=== PATIENT | male | born 1955 | race Caucasian/White ===

== ENCOUNTER 2025-04-28 10:12 | Emergency (ER) | payer OTHER ==
--- NOTE | 2025-04-28 11:37 | RAD REPORT ---
EXAM: XR Knee Right 3 View HISTORY: [facility] MAIN PAIN Bed: COMPARISON: None TECHNIQUE: 3 views of the right knee were obtained. FINDINGS: Moderate knee effusion is seen. There is no evidence of acute fracture or dislocation. Mil d degenerative changes are seen. Enthesopathy at the quadriceps tendon attachment. IMPRESSION: No evidence of acute osseous abnormality. Moderate joint effusion.
--- NOTE | 2025-04-28 13:09 | ER ---
Nurse's Notes [facility] Name: Rigo Diallo Age: 69 yrs Sex: Male : 1955 Arrival Date: 04/28/2025 Time: 10:12 Bed Treatment Private MD: Diagnosis: Effusion, right knee;Pain in right knee Presentation: 04/28 10:50 Chief complaint: Patient states: Mechanical fall onto right knee yesterday. Coronavirus jl7 screen: At this time, the client does not indicate any symptoms associated with coronavirus-19. Ebola Screen: No symptoms or risks identified at this time. 10:50 Method Of Arrival: Wheelchair jl7 10:50 Initial Sepsis Screen: Does the patient meet any 2 criteria? No. Patient's initial jl7 sepsis screen is negative. Does the patient have a suspected source of infection? No. Patient's initial sepsis screen is negative. Risk Assessment: Do you want to hurt yourself or someone else? Patient reports no desire to harm self or others. Onset of symptoms was April 27, 2025. 10:50 Acuity: GEO 4 jl7 Triage Assessment: 12:06 General: Appears in no apparent distress. uncomfortable, Behavior is calm, cooperative, jl7 appropriate for age. Pain: Complains of pain in right knee Pain currently is 5 out of 10 on a pain scale. Musculoskeletal: Swelling present in right knee. Injury Description: right knee pain. Historical: - Allergies: 12:06 Cipro PO; jl7 - Home Meds: 12:06 Procardia Oral [Active]; Lisinopril Oral [Active]; jl7 - PMHx: 12:06 Hypertensive disorder; Hypercholesterolemia; jl7 - Immunization history:: Adult Immunizations unknown. - Infectious Disease History:: Denies. - Social history:: Smoking status: Patient denies any tobacco usage or history of. Patient uses alcohol, on a daily basis. patient/guardian reports chronic longstanding heavy alcohol consumption. 12 beers/day. Vital Signs: 10:50 BP 116 / 64; Pulse 77; Resp 17; Temp 97.6; Pulse Ox 98% ; Weight 122.47 kg; Height 6 jl7 ft. 2 in. ; Pain 5/10; 10:50 Body Mass Index 34.67 (122.47 kg, 187.96 cm) jl7 10:50 Pain Scale: Adult jl7 ED Course: 10:32 Patient arrived in ED. cj3 10:35 Charly Acosta, RN is Primary Nurse. ll1 10:35 Dean Tay FNP-C is PHCP. ll1 11:16 Knee Right 3 View XRAY In Process Unspecified. EDMS 12:05 Triage completed. jl7 12:06 Arm band placed on right wrist. jl7 13:09 Allen Reddy MD is Referral Physician. dr5 13:09 Rafael Schulte MD is Referral Physician. dr5 13:10 Nav Green is Attending Physician. dr5 13:37 No provider procedures requiring assistance completed. Patient did not have IV access jl7 during this emergency room visit. Administered Medications: No medications were administered Outcome: 13:09 Discharge ordered by MD. dr5 13:37 Discharged to home via wheelchair, with crutches, jl7 13:37 Condition: stable 13:37 Discharge instructions given to patient, family, Instructed on discharge instructions, follow up and referral plans. medication usage, Demonstrated understanding of instructions, follow-up care, medications, Prescriptions given X 2, 13:38 Patient left the ED. jl7 Signatures: Dispatcher [employer] EDID Berta Montana RN RN jl7 Charly Acosta, RN RN ll1 Dean Tay FNP-C [employer]ACHINE-[facility]5 Jeniffer Nassar cj3
[2025-04-28 14:02] VITALS: BP 116/64; TEMP 97.6; O2SAT 98
--- NOTE | 2025-04-29 13:39 | EDPHYS ---
Physician Documentation [facility] Name: Rigo Diallo Age: 69 yrs Sex: Male : 1955 Arrival Date: 04/28/2025 Time: 10:12 Bed Treatment Private MD: ED Physician Nav Green HPI: 04/28 16:36 This 69 yrs old Male presents to ER via Wheelchair with complaints of Knee dr5 Injury - RT. 16:36 Onset: The symptoms/episode began/occurred acutely. Patient is a 69-year-old male with dr5 history of hypertension and hyperlipidemia coming in with fall yesterday on right knee. Patient reports he was work on his boat and actually missed a step and fell in his right knee. Patient reports swelling and tenderness to the right knee. Patient is amatory with steady gait.. Historical: - Allergies: 12:06 Cipro PO; jl7 - Home Meds: 12:06 Procardia Oral [Active]; Lisinopril Oral [Active]; jl7 - PMHx: 12:06 Hypertensive disorder; Hypercholesterolemia; jl7 - Immunization history:: Adult Immunizations unknown. - Infectious Disease History:: Denies. - Social history:: Smoking status: Patient denies any tobacco usage or history of. Patient uses alcohol, on a daily basis. patient/guardian reports chronic longstanding heavy alcohol consumption. 12 beers/day. ROS: 16:36 Constitutional: as per hpi dr5 Exam: 16:36 Constitutional: This is a well developed, well nourished patient who is awake, alert, dr5 and in no acute distress. Head/Face: Normocephalic, atraumatic. Eyes: Pupils equal round and reactive to light, extra-ocular motions intact. Lids and lashes normal. Conjunctiva and sclera are non-icteric and not injected. Cornea within normal limits. Periorbital areas with no swelling, redness, or edema. Neck: Trachea midline, no thyromegaly or masses palpated, and no cervical lymphadenopathy. Supple, full range of motion without nuchal rigidity, or vertebral point tenderness. No Meningismus. Chest/axilla: Normal chest wall appearance and motion. Nontender with no deformity. No lesions are appreciated. Cardiovascular: Regular rate and rhythm with a normal S1 and S2. Normal PMI, no JVD. No pulse deficits. Respiratory: Lungs have equal breath sounds bilaterally, clear to auscultation. No rales, rhonchi or wheezes noted. No increased work of breathing, no retractions or nasal flaring. Back: No spinal tenderness. No costovertebral tenderness. Full range of motion. Skin: Warm, dry with normal turgor. Normal color with no rashes, no lesions, and no evidence of cellulitis. Neuro: Awake and alert, GCS 15, oriented to person, place, time, and situation. Cranial nerves II-XII grossly intact. Motor strength 5/5 in all extremities. Sensory grossly intact. Cerebellar exam normal. Normal gait. 16:36 Musculoskeletal/extremity: Extremities: grossly normal except: noted in the right knee: swelling, ROM: no acute changes, intact in all extremities, Circulation is intact in all extremities. Sensation intact. Vital Signs: 10:50 BP 116 / 64; Pulse 77; Resp 17; Temp 97.6; Pulse Ox 98% ; Weight 122.47 kg; Height 6 jl7 ft. 2 in. ; Pain 5/10; 10:50 Body Mass Index 34.67 (122.47 kg, 187.96 cm) jl7 10:50 Pain Scale: Adult jl7 Procedures: 16:36 Splinting: Splint applied to right knee using rebel wrap, applied by nurse. Examined by vinny bang, post splint application: neurovascular intact, 2+ distal pulses palpable, brisk capillary refill noted, Patient tolerated. Splinting: Patient tolerated well. Crutch training provided to patient and/or family. Return demonstration given. MDM: 10:43 Medical Screening Exam initiated dr5 16:36 Differential diagnosis: abrasion, contusion, fracture, sprain, strain. Data reviewed: [facility] vital signs, nurses notes, radiologic studies, plain films. Consideration of Admission/Observation Escalation of care including admission/observation considered. Consider admission or escalation of patient found to have septic joint. Historians other than the Patient: Spouse/Significant Other: . Care significantly affected by the following chronic conditions: Hypertension, Hyperlipidemia. Care significantly affected by the following Social Determinants of Health: Poor access to healthcare and/or lack of insurance, Poor access to transportation, Problems related to employment. Counseling: I had a detailed discussion with the patient and/or guardian regarding the historical points, exam findings, and any diagnostic results supporting the discharge/admit diagnosis, the presence of at least one elevated blood pressure reading (>120/80) during this emergency department visit, radiology results, the need for outpatient follow up, for definitive care, a orthopedic surgeon, to return to the emergency department if symptoms worsen or persist or if there are any questions or concerns that arise at home. Special discussion: I have referred the patient to see his PCP for further evaluation of high blood pressure. I discussed with the patient/guardian in detail that at this point there is no indication for admission to the hospital. It is understood, however, that if the symptoms persist or worsen the patient needs to return immediately for re-evaluation. ED course: Rebel wrap applied in ER due to knee immobilizer not being taken off. Crutches given. Recommended patient get knee brace or knee immobilizer. CD made and given to patient to take to orthopedics. Effusion noted to the right knee and recommended RICE. All questions answered. Strict ER precautions were given.. 04/28 10:36 Order name: Knee Right 3 View XRAY; Complete Time: 12:31 ll1 04/28 13:07 Order name: Crutches dr5 04/28 13:08 Order name: Rebel Wrap dr5 Administered Medications: No medications were administered Disposition: 17:03 Co-signature as Attending Physician, Nav Green I agree with the assessment ci and plan of care. I reviewed the patient's care provided by the Advanced Practice Provider and agree with the diagnosis and treatment plan. Disposition Summary: 04/28/25 13:09 Discharge Ordered Notes: Location: Home dr5 Condition: Stable dr5 Diagnosis - Effusion, right knee dr5 - Pain in right knee dr5 Followup: dr5 - With: Emergency Department - When: As needed - Reason: Worsening of condition Followup: dr5 - With: Allen Reddy MD - When: 1 week - Reason: Recheck today's complaints, Continuance of care, Re-evaluation by your physician Followup: dr5 - With: Rafael Schulte MD - When: 1 week - Reason: Recheck today's complaints, Continuance of care, Re-evaluation by your physician Discharge Instructions: - Discharge Summary Sheet dr5 - Acute Knee Pain, Adult dr5 Forms: - Medication Reconciliation Form dr5 - Patient Portal Instructions dr5 - Leadership Thank You Letter dr5 Prescriptions: - Ibuprofen 800 mg Oral Tablet - take 1 tablet ORAL route every 12 hours As needed take with food; 20 tablet; dr5 Refills: 0, Product Selection Permitted - Tramadol 50 mg Oral Tablet - take 1 tablet ORAL route every 8 hours as needed; 12 tablet; Refills: 0, dr5 Product Selection Permitted Signatures: Dispatcher [employer] Berta Bañuelos RN RN jl7 Iheonunekwu, Dean Woodard, GAME ARTIST-C GAME ARTIST-Cdr5 Corrections: (The following items were deleted from the chart) 13:07 13:07 Knee Immobilizer ordered. dr5 dr5
== END 2025-04-28 13:38 | disposition home or self-care (01) ==
LOC: ER 10:12
DX: M25.461 Effusion, right knee (principal)
CPT/HCPCS: 99283